=== PATIENT | male | born 1975 | race Caucasian/White ===

== ENCOUNTER → 2018-12-01 | Outpatient (CLI) | payer OTHER | LOC: RAD 16:00 | DX: I86.1 Scrotal varices (principal); N50.819 Testicular pain, unspecified; N50.89 Other specified disorders of the male genital organs ==

== ENCOUNTER → 2019-04-29 | Outpatient (CLI) | payer OTHER ==
[2019-04-29 07:57] LABS: LIPASE 18 U/L (8-78)
== END ==
LOC: RAD 07:30
DX: K21.9 Gastro-esophageal reflux disease without esophagitis (principal)

== ENCOUNTER → 2019-06-04 | Day surgery (SDC) | payer OTHER | END | disposition home or self-care (01) | LOC: MSO 07:21 | DX: K21.0 Gastro-esophageal reflux disease with esophagitis (principal); K22.70 Barrett's esophagus without dysplasia; Z87.891 Personal history of nicotine dependence; Z79.899 Other long term (current) drug therapy | CPT/HCPCS: 00731; J2704; J7120 ==

== ENCOUNTER 2020-08-11 12:59 | Outpatient (RCR) | payer OTHER | END 2020-11-09 | disposition home or self-care (01) | LOC: PT | DX: M25.562 Pain in left knee (principal) ==